=== PATIENT | female | born 1955 | race Caucasian/White ===

== ENCOUNTER 2017-05-24 06:33 | Inpatient (IN) | payer OTHER ==
[2017-05-05 10:19] LABS: URINE BILIRUBIN NEGATIVE (Negative); URINE BLOOD NEGATIVE (Negative); URINE CLARITY CLEAR; URINE COLOR YELLOW; URINE GLUCOSE-RANDOM NEGATIVE (Negative); URINE KETONES NEGATIVE (Negative); URINE PROTEIN NEGATIVE (Negative); URINE SPECIFIC GRAVITY 1.015 (1.005-1.030); URINE UROBILINOGEN 0.2 E.U./dl (0.2-1.0)
[2017-05-05 10:21] LABS: URINE LEUKOCYTES-REFLEX 2+ (Negative); URINE NITRITE-REFLEX POSITIVE (Negative)
[2017-05-05 10:37] LABS: BACTERIA-REFLEX >30 Many /HPF (None Seen); CASTS None Seen /LPF (None Seen); CRYSTALS None Seen /LPF (None Seen); MUCUS 0-3 Light strn/LPF (None Seen); SQUAMOUS 4-10 Moderate /LPF (0-3); URINE RBC 0-2 Rare /HPF (0-2); URINE WBC-REFLEX 6-15 Few /HPF (0-5)
[2017-05-05 10:55] LABS: HEMATOCRIT 46.2 % (37.0-47.0); HEMOGLOBIN 15.3 gm/dL (12.0-15.0); MCH 29.6 pg (26.0-34.0); MCHC 33.2 g/dL (28.0-37.0); MCV 89.3 fL (80.0-100.0); MPV 8.8 fl. (7.2-11.1); RBC 5.17 mil/uL (4.20-5.00); RDW-CV 12.9 % (10.5-14.5); WBC 8.1 thou/uL (4.0-11.0)
[2017-05-05 11:07] LABS: ALBUMIN 3.6 g/dL (3.4-5.0); CALCIUM 8.9 mg/dL (8.5-10.1); CREATININE 0.9 mg/dL (0.6-1.3); POTASSIUM 4.2 mmol/L (3.5-5.1); TOTAL BILIRUBIN 0.6 mg/dL (<0.1-1.0); TOTAL PROTEIN 7.6 g/dL (6.4-8.2)
[~2017-05-24] VITALS: Ht 152.4 cm; Wt 90.3 kg
[~2017-05-24 06:33] MED LIST: ADIPEX-P37.5 MG PO; COZAAR 50 MG TA50 M2 PO; IBUPROFEN 400400 M2 PO; LEXAPRO 10 MG T10 M1 PO
[2017-05-24 07:45] VITALS: BP 133/93
[2017-05-24 16:00] VITALS: BP 134/82
[2017-05-24 20:00] VITALS: BP 133/47
[2017-05-25 00:06] VITALS: BP 167/59
[2017-05-25 04:21] VITALS: BP 114/69
[2017-05-25 05:27] LABS: HEMATOCRIT 37.5 % (37.0-47.0); HEMOGLOBIN 12.5 gm/dL (12.0-15.0)
[2017-05-25 08:00] VITALS: BP 122/65
[2017-05-25 11:35] VITALS: BP 114/69
--- NOTE | 2017-05-25 13:14 | S ---
[address] [address] SURGICAL PATH RPT PROCEDURE Name: MICHAEL WATSON Room: [address] IN ..#: [id number] Admission: 05/24/17 Date of : 59 Discharge: Report #: [id number] Path Case #: [id number] PATHOLOGY REPORT COLLECTION DATE: 05/24/2017 RECEIVED DATE: 05/24/2017 SUBMITTING PHYS: Dr. Franky Mg II OTHER PHYS: Dr. Ephraim Jon SPECIMEN(S) RECEIVED: A.Bone and tissue left knee * * * * * * * * * * * * FINAL DIAGNOSIS: Bone and tissue left knee, total knee replacement: - Benign synovium and meniscus and benign bone and cartilage with severe degenerative changes. (TEMITOPE:[facility]; 05/25/2017) PATHOLOGIST: Bryce Bonilla M.D. REPORT ELECTRONICALLY SIGNED BY: Bryce Bonilla M.D. DATE/TIME: 05/25/2017 13:12 * * * * * * * * * * * * GROSS PATHOLOGY: Received in formalin labeled "Michael Watson and bone and tissue left knee," are multiple segments of bone, including tibial plateau, measuring 10 x 8 x 3.5 cm in aggregate dimensions myers-white soft tissue; meniscus is present 3.5 x 1.0 x 0.7 and 4.5 x 1.2 x 0.7 cm. Osteophytes are identified. The specimen shows focal eburnation of the articular surfaces. [employer] Supervisor sections of bone and soft tissue are submitted in cassette A1, following decalcification. ([facility]; 05/24/2017) CLINICAL HISTORY: Left knee degenerative joint disease INITIAL CPT CODE(S): A; 02431, 35086 Professional services [place] [address] Technical services performed by [facility] at [address] [place] [address], [facility] [address] [address]. [place] [address] SURGICAL PATH RPT PROCEDURE Name: MICHAEL WATSON Room: [address] IN ..#: [id number] Admission: 05/24/17 Date of : 59 Discharge: Report #: [id number] Path Case #: [id number] [facility] [address] [place] [address] PHONE: [phone] DIRECTOR: Bartolo Cottrell M.D. * * * END OF REPORT * * *
[2017-05-25 16:28] VITALS: BP 143/79
[2017-05-25 23:32] VITALS: BP 127/62
[2017-05-26 04:38] VITALS: BP 130/64
[2017-05-26 05:04] LABS: HEMATOCRIT 38.4 % (37.0-47.0); HEMOGLOBIN 12.6 gm/dL (12.0-15.0)
[2017-05-26] MEDS ORDERED: COLACE 100 MG100 MG PO (08:09)
[2017-05-26 15:46] VITALS: BP 114/69
[2017-05-26 15:54] VITALS: BP 114/69
[2017-05-26 16:05] VITALS: BP 114/69
[2017-05-26] MEDS ORDERED: XARELTO10 MG PO (16:25)
[2017-05-26] MEDS ORDERED: PERCOCET PO (16:26)
[2017-05-26 17:45] VITALS: BP 114/69
--- NOTE | 2017-05-28 16:15 | OP ---
[address] [address] OPERATIVE REPORT Name: ALBERT SCHAEFFEROSMIN Claudio Room: [address] IN .R.#: [id number] Admission: 05/24/17 Attend Phys: Linda Johansen Discharge: 05/26/17 Date of : 59 Report #: [id number] THIS REPORT FOR: //name// CC: Elisabet Myrick DATE OF SERVICE: 05/24/2017 PREOPERATIVE DIAGNOSIS: Left knee osteoarthritis. POSTOPERATIVE DIAGNOSIS: Left knee osteoarthritis. PROCEDURE: Left total knee arthroplasty. SURGEON: Franky Mg II, DO. AUTOMATION QTP TESTER: LARY Dowell. ANESTHESIA: Per operative record. ESTIMATED BLOOD LOSS: 50 mL. ANTIBIOTICS: Per operative record. DRAINS: None. DRAINS: Medium Hemovac. COMPLICATIONS: None. CONDITION: The patient is stable to recovery room. IMPLANTS: Listed in progress note and operative record. BRIEF HISTORY: The patient was seen in preoperative area. Preoperative H and P was performed. INDICATIONS: The patient had failed conservative management and elected to proceed with left total knee arthroplasty. Site was marked and questions were answered. The patient assumed all risks and wished to proceed. DESCRIPTION OF PROCEDURE: The patient was carefully placed supine on the operative table and given appropriate anesthesia. The patient's left lower extremity was placed and a well-padded tourniquet applied, was inflated to 300 mmHg for the duration of procedure after gravity exsanguination. Surgery began [facility] [address] [place] [address] OPERATIVE REPORT Name: MAKSIMMICHAEL Room: [address] IN .R.#: [id number] Admission: 05/24/17 Attend Phys: Linda Johansen Discharge: 05/26/17 Date of : 59 Report #: [id number] by sterile drape. Incision was then made on the anterior aspect of the knee. A medial parapatellar arthrotomy was performed, carried down to bone. The patella was then everted and excess soft tissue removed from around the femur. The femoral cutting block was then applied to check for rotational alignment, pinned in appropriate position and appropriate cuts were made. The 4-in-1 cutting block was then applied and appropriate cuts were made along the femur. Attention was then turned to the tibia. Excess meniscus and osteophytes were removed. Retractors were then placed and the tibial cutting block was aligned, checked with the drop joss for appropriate rotation and slope, and appropriate cut was made. Excess bone was removed utilizing Hayes and osteotome. Rongeur was then utilized to remove any excess around the rim. The tibial baseplate was then aligned, checked with the drop joss for rotational alignment and pinned in appropriate position. Femur was then applied and a box cut was reamed. This was then trialed and shown to have excellent fit and fill and excellent stability of the knee throughout all ranges of motion. The patella was then reamed in appropriate fashion, drilled with three peg holes and patellar button was trialed which shown to have excellent flexion, extension, and excellent tracking within the groove. These trials were then removed. The tibia was punched in appropriate fashion. The bones were cleansed with Pulsavac irrigation and the final implants were selected. Cement was mixed and applied to these as well as the bone and these were then malleted in position and held in extension with compression across the joint to allow the cement to cure. After the cement cured, excess was removed with a Hayes and osteotome. The wound was then copiously irrigated. This was once again trialed with the appropriate sized spacer. This was then selected and malleted in position. Tourniquet was deflated. Hemostasis was maintained with electrocautery. Pain cocktail was injected. PRP gel was sprayed throughout the internal aspect of the knee. The capsule was then closed with a FiberWire and #1 Vicryl stitch in shelwn-il-hatpi fashion. Skin was closed with 2-0 Vicryl and running Monocryl stitch. Dermabond and sterile dressing was applied and the patient transported to the recovery in stable condition. Counts were correct throughout the procedure. <ELECTRONICALLY SIGNED> By: Franky Mg II, DO 05/28/17 1615 [id number] Mg II, DO /nt
== END 2017-05-26 16:45 | disposition home health service (06) | DRG 470 ==
LOC: M.PRE 06:33 → M.TBA 07:00 → M.PRE 07:57 → M.ORTHSURG 11:18 → M.PRE 12:43 → M.ORTHSURG 05-26 16:45
PROVIDERS: Orthopaedic Surgery; ADMIT Internal Medicine
PROC: 0SRD0J9 Replacement of Left Knee Joint with Synthetic Substitute, Cemented, Open Approach (ICD-10-PCS; principal; 2017-05-24)
DX: M17.12 Unilateral primary osteoarthritis, left knee (principal); I10 Essential (primary) hypertension; F41.9 Anxiety disorder, unspecified; Z22.322 Carrier or suspected carrier of Methicillin resistant Staphylococcus aureus; Z79.899 Other long term (current) drug therapy; Z28.21 Immunization not carried out because of patient refusal

== ENCOUNTER → 2017-10-31 | Outpatient (CLI) | payer OTHER ==
[~2017-10-31] MED LIST changes: +COLACE 100 MG100 MG PO; +PERCOCET PO; +XARELTO10 MG PO
== END ==
LOC: M.RAD 08:07
DX: M81.0 Age-related osteoporosis without current pathological fracture (principal); M85.89 Other specified disorders of bone density and structure, multiple sites; Z78.0 Asymptomatic menopausal state

== ENCOUNTER → 2020-02-15 | Outpatient (CLI) | payer OTHER | LOC: M.RAD 11-05 08:00 | PROVIDERS: ATTEND Family Medicine | DX: M85.80 Other specified disorders of bone density and structure, unspecified site (principal); M81.8 Other osteoporosis without current pathological fracture ==